=== PATIENT | female | born 1995 | race Caucasian/White ===

== ENCOUNTER 2017-03-17 21:45 | Emergency (ER) | payer MEDICAID, OTHER ==
[~2017-03-17] VITALS: Ht 160 cm; Wt 49.0 kg
[2017-03-17 22:07] VITALS: Ht 160 cm; Wt 49.0 kg
[2017-03-18] MEDS ORDERED: LIDOCAINE 2% (MDV) 20 ML INJ INJ ONE (02:30)
--- NOTE | 2017-03-18 02:59 | ERD ---
ER Documentation Chief Complaint Date/Time DATE: 03/18/17 TIME: 02:56 Chief Complaint DOG BITE; LACERATION ON LOWER RIGHT CHIN; NO ACTIVE BLEEDING NOTED HPI This pleasant 22-year-old female presents to emergency department for evaluation of a right lateral jaw laceration. Patient was reportedly holding her dog when the dog started barking in accidentally bit her face patient has actively bleeding puncture on right lateral jaw in 2 superficial punctures under chin. Patient's last tetanus was a year ago. ROS All systems reviewed and are negative except as per history of present illness. Medications Home Meds Active Scripts Ibuprofen* (Motrin*) 400 Mg Tab, 400 MG PO Q6, #30 TAB Prov:JOSE,TERENCE 03/18/17 Amoxicillin/Potassium Clav (Amox-Clav 875-125 mg Tablet) 875-125 mg Tab, 1 TAB PO BID for 10 Days, #20 TAB Prov:JOSE,TERENCE 03/18/17 PMhx/Soc Medical and Surgical Hx: pt denies Medical Hx, pt denies Surgical Hx Hx Alcohol Use: No Hx Substance Use: No Hx Tobacco Use: No Smoking Status: Never smoker Physical Exam Vitals Vital Signs Date Time Temp Pulse Resp B/P Pulse Ox O2 Delivery O2 Flow Rate FiO2 03/18/17 03:09 98.5 66 118/77 99 Room Air 03/17/17 22:07 98.2 82 20 115/76 98 Vitals stable, triage notes reviewed Physical Exam Const: Well-nourished well-appearing well-hydrated no acute Head: Atraumatic Eyes: Normal Conjunctiva PERRLA, EOMI ENT: Normal External Ears, Nose and Mouth, mucous membranes moist. Neck: Full range of motion. Resp: Respirations even and unlabored, no respiratory disc Cardio: Regular rate and rhythm, no murmurs Abd: Soft, non tender, non distended. Normal bowel sounds Skin: Right lateral jaw presents with a 1 cm flap laceration, 2 superficial puncture lacerations under chin. Back: No midline or flank tenderness Ext: Neur: Awake and alert Psych: Normal Mood and Affect Results 24 hrs Current Medications Medications (Trade) Dose Ordered Sig/Rajinder Route PRN Reason Start Time Stop Time Status Last Admin Dose Admin Lidocaine (Xylocaine 2% (Mdv) 20 ml) 20 ml ONCE ONCE INJ 03/18/17 02:30 03/18/17 02:31 DC 03/18/17 02:35 Procedures/MDM Laceration Repair by me: Anesthesia: 1% lidocaine [with] epinephrine locally Location: Right lateral jaw -inferior chin Tendon/Joint/Nerves: No injury Foreign body: None detected after copious irrigation and exploration Technique: Simple Interrupted Sutures right lateral jaw 5 (2 superficial 1 cm punctures closed with surgical glue) Complexity: No subcutaneous sutures/mucosal repair/ edge excision Post Closure Length: 1 cm cm Patient's bleeding was easily controlled in the department and there is no indication of anemia. No evidence of compartment syndrome, neurologic injury, vascular injury, open joint, tendon laceration, or foreign body. Patient is appropriate for outpatient follow up. 48 hour wound check. Scar minimization instructions given. I feel the patient is stable for discharge at this time. I have discussed results, examination findings, the treatment plan with the patient and family present prior to discharge. Indications for emergent reevaluation, side effects of medication were also discussed. All questions were answered. Patient verbalizes understanding and agrees with plan of care. Departure Diagnosis: Primary Impression: Bite wound Additional Impression: Laceration Condition: Good Patient Instructions: Animal Bite, General, Laceration, Face (Skin Glue), Laceration, Face (Suture Or Tape) Referrals: [facility] Additional Instructions: Thank you for for coming to [facility] for your care today. Please ask your nurse or provider if you have questions about your care today and do not leave until all your questions have been answered. Please use any medications given as directed and follow-up with your doctor (or the doctor you were referred to) in the next 2-3 days. If you do not have a primary care doctor you may follow up at the [facility] (listed below). You may also use motrin and tylenol as needed for fever and/or pain unless instructed otherwise by your provider or nurse. Indications for more urgent follow-up have been discussed, but you may return to the Emergency Department at ANY time for any worrisome or worsening symptoms. If you have abdominal pain, please know that no test or exam you received is perfect and you should follow up within 8 hours for continued pain. If you had any imaging studies today, such as an X-Ray or CT Scan, these studies will be reviewed later by a radiologist. You will be called if there are important findings that were not identified today, so make sure the contact information you provided at registration is correct. If you received any narcotic pain control medicine today, such as Vicodin, Morphine or Dilaudid, your coordination and judgment may be affected for a number of hours. Please do not drive or operate heavy machinery, and you may want someone to assist you at home. If you were given a prescription for narcotic medication, be aware that it is very addictive- use sparingly and only if necessary. TERENCE GARCIA Mar 18, 2017 02:59
[2017-03-18] MEDS ORDERED: AMOX1TAB10 PO (03:00)
[2017-03-18] MEDS ORDERED: IBUP400T22 PO (03:01)
[2017-03-18 03:09] VITALS: BP 118/77; PULSE 66; TEMP 98.5
== END 2017-03-18 03:01 | disposition home or self-care (01) ==
LOC: FTE 21:45
DX: S01.451A Open bite of right cheek and temporomandibular area, initial encounter (principal); S01.81XA Laceration without foreign body of other part of head, initial encounter; W54.0XXA Bitten by dog, initial encounter; Y92.9 Unspecified place or not applicable